=== PATIENT | male | born 1985 | race Two or more races ===

== ENCOUNTER 2023-10-23 13:33 | Emergency (ER) | payer BC ==
[~2023-10-23] VITALS: Ht 180.3 cm; Wt 97.5 kg
[2023-10-23] MEDS ORDERED: IBUP-1955 PO (15:48)
[2023-10-23 16:37] VITALS: BP 120/79; TEMP 98.8; O2SAT 97
== END 2023-10-23 16:00 | disposition home or self-care (01) ==
LOC: ER 13:56
DX: S53.492A Other sprain of left elbow, initial encounter (principal); S63.592A Other specified sprain of left wrist, initial encounter; K21.9 Gastro-esophageal reflux disease without esophagitis; W01.0XXA Fall on same level from slipping, tripping and stumbling without subsequent striking against object, initial encounter; Y93.89 Activity, other specified; Y92.89 Other specified places as the place of occurrence of the external cause; Y99.8 Other external cause status
CPT/HCPCS: 73080-TC; 73090-TC; 73110